=== PATIENT | female | born 1945 | race Caucasian/White ===

== ENCOUNTER 2022-05-16 09:36 | Day surgery (SDC) | payer MEDICARE ==
[2022-05-15 09:42] VITALS: BMI 28.4
[~2022-05-16 09:36] MED LIST: LACTATED RINGERS 1,000 ML IV SCH; SODIUM CHLORIDE 0.9% 1,000 ML IV SCH
[2022-05-16] MEDS ORDERED: SODIUM CHLORIDE 0.9% 500 ML 500 ML IV ONE (09:54)
[2022-05-16 10:04] VITALS: RESP 16; TEMP 97.1
[2022-05-16 10:18] LABS: Basophils # (A) 0.1 k/uL (0-0.2); Basophils % (A) 1 %; Eosinophils # (A) 0.3 k/uL (0-0.7); Eosinophils % (A) 4 %; HCT 42.6 % (34.0-46.0); HGB 13.7 gm/dL (11.4-16.0); Lymphocytes # (A) 2.1 k/uL (1.0-4.8); Lymphocytes % (A) 22 %; MCH 31.6 pg (25.0-35.0); MCHC 32.2 g/dL (31.0-37.0); MCV 98.2 fL (80.0-100.0); Mean Platelet Volume 8.1; Monocytes # (A) 0.5 k/uL (0-1.0); Monocytes % (A) 6 %; Neutrophils # (A) 6.1 k/uL (1.3-7.7); Neutrophils % (A) 66 %; Platelet Count 297 k/uL (150-450); RBC 4.34 m/uL (3.80-5.40); RDW 12.5 % (11.5-15.5); WBC 9.3 k/uL (3.8-10.6)
[2022-05-16 11:00] LABS: African American GFR (CKD) 37 (>60 ml/min/1.73 sqM); Anion Gap 14 mmol/L; Blood Urea Nitrogen 32 mg/dL (7-17); Calcium 9.6 mg/dL (8.4-10.2); Carbon Dioxide 24 mmol/L (22-30); Chloride 100 mmol/L (98-107); Glucose 103 mg/dL (74-99); Magnesium 1.6 mg/dL (1.6-2.3); Non-African American GFR(CKD) 32 (>60 ml/min/1.73 sqM); Sodium 138 mmol/L (137-145)
[2022-05-16] MEDS ORDERED: PROPOFOL 10 MG/ML 20 ML VIAL IV ONE (11:35)
--- NOTE | 2022-05-16 12:11 | P.EPPROC ---
- EP Procedure Note Electrophysiology Procedure Note: Diagnosis Persistent symptomatic atrial fibrillation with shortness of breath Normal white count 9.3 thousand, hemoglobin normal 13.7 Sodium 138 potassium 4.0 BUN 32 and creatinine 1.56 Normal TSH of 4.2 Procedure Electrical cardioversion for atrial fibrillation Patient on metoprolol ELIQUIS and flecainide Details Successful electrical cardioversion with a 200 J biphasic shock in the AP configuration to sinus rhythm Postconversion pause with some secondary pauses and then resumption of sinus rhythm Postprocedure 12-lead EKG shows sinus mechanism with a mildly prolonged DC interval heart rate 56 beats a minute with nonspecific ST-T abnormality Plan Reduce Lasix to 20 mg by mouth daily Reduce oral potassium 20 mEq once daily Continue flecainide 100 mg twice daily Reduce metoprolol dose to 25 mg twice daily
[2022-05-16 12:42] VITALS: BP 121/74; PULSE 53
== END 2022-05-16 13:06 | disposition home or self-care (01) ==
LOC: CATHCVL 09:36
PROVIDERS: ATTEND Internal Medicine Clinical Cardiac Electrophysiology
DX: I48.19 Other persistent atrial fibrillation (principal); I11.0 Hypertensive heart disease with heart failure; I50.23 Acute on chronic systolic (congestive) heart failure; Z79.890 Hormone replacement therapy; Z79.899 Other long term (current) drug therapy; Z87.891 Personal history of nicotine dependence; Z20.822 Contact with and (suspected) exposure to COVID-19
CPT/HCPCS: 92960; 80048; 84443; 83735; 85025; 87635; J2704

== ENCOUNTER → 2022-07-25 | Outpatient (CLI) | payer MEDICARE ==
[2022-07-25 20:16] LABS: Magnesium 2.2 mg/dL (1.5-2.4)
[2022-07-25 20:18] LABS: African American GFR (CKD) 36.5 (60.0-200.0); Blood Urea Nitrogen 22.3 mg/dL (9.0-27.0); Calcium 10.3 mg/dL (8.7-10.3); Carbon Dioxide 26.6 mmol/L (20.0-27.5); Chloride 100 mmol/L (96-109); Glucose 90 mg/dL (70-110); Non-African American GFR(CKD) 31.5 (60.0-200.0); Potassium 4.1 mmol/L (3.5-5.5); Sodium 140 mmol/L (135-145)
== END | disposition home or self-care (01) ==
LOC: LABWHC1 12:07
PROVIDERS: ATTEND Internal Medicine Interventional Cardiology
DX: I48.0 Paroxysmal atrial fibrillation (principal)
CPT/HCPCS: 36415; 80048; 83735; 84443

== ENCOUNTER 2022-09-11 08:02 | Day surgery (SDC) | payer MEDICARE ==
[2022-09-06 15:47] VITALS: BMI 28.2
[~2022-09-11 08:02] MED LIST changes: +LIDOCAINE 1% (10MG/ML) FOR IV START INTRADERMA PRN
[2022-09-11 08:47] LABS: Basophils # (A) 0.1 k/uL (0-0.2); Basophils % (A) 1 %; Eosinophils # (A) 0.5 k/uL (0-0.7); Eosinophils % (A) 8 %; HCT 41.3 % (34.0-46.0); HGB 13.6 gm/dL (11.4-16.0); Lymphocytes # (A) 1.9 k/uL (1.0-4.8); Lymphocytes % (A) 30 %; MCH 31.8 pg (25.0-35.0); MCHC 32.9 g/dL (31.0-37.0); MCV 96.8 fL (80.0-100.0); Mean Platelet Volume 8.3; Monocytes # (A) 0.4 k/uL (0-1.0); Monocytes % (A) 6 %; Neutrophils # (A) 3.3 k/uL (1.3-7.7); Neutrophils % (A) 52 %; Platelet Count 307 k/uL (150-450); RBC 4.26 m/uL (3.80-5.40); RDW 13.3 % (11.5-15.5); WBC 6.4 k/uL (3.8-10.6)
[2022-09-11 09:03] LABS: ALT 23 U/L (4-34); AST 30 U/L (14-36); African American GFR (CKD) 42 (>60 ml/min/1.73 sqM); Albumin 4.2 g/dL (3.5-5.0); Alkaline Phosphatase 113 U/L (38-126); Anion Gap 7 mmol/L; Blood Urea Nitrogen 29 mg/dL (7-17); Calcium 9.3 mg/dL (8.4-10.2); Carbon Dioxide 28 mmol/L (22-30); Chloride 104 mmol/L (98-107); Glucose 94 mg/dL (74-99); Non-African American GFR(CKD) 36 (>60 ml/min/1.73 sqM); Potassium 4.1 mmol/L (3.5-5.1); Sodium 139 mmol/L (137-145); Total Bilirubin 0.5 mg/dL (0.2-1.3); Total Protein 7.3 g/dL (6.3-8.2)
[2022-09-11] MEDS ORDERED: ePHEDrine 50 MG/ML 1 ML VIAL ONE (10:20)
[2022-09-11] MEDS ORDERED: HEPARIN SODIUM,PORCINE 10,000 UNIT/ML 1 ML VIAL ONE (10:20)
[2022-09-11] MEDS ORDERED: fentaNYL (PF) 50 MCG/ML 2 ML AMP ONE (10:20)
[2022-09-11] MEDS ORDERED: PROTAMINE SULFATE 10 MG/ML 5 ML VIAL IV ONE (10:20)
[2022-09-11] MEDS ORDERED: HYDROmorphone (PF) 1 MG/ML ONE (10:20)
[2022-09-11] MEDS ORDERED: ISOPROTERENOL 250 MCG/1.25 ML SYR IV ONE (10:20)
[2022-09-11] MEDS ORDERED: MIDAZOLAM 2 MG/2 ML VIAL ONE (10:20)
[2022-09-11] MEDS ORDERED: PROPOFOL 10 MG/ML 20 ML VIAL IV ONE (10:20)
[2022-09-11] MEDS ORDERED: SUCCINYLCHOLINE CHLORIDE 200 MG/10 ML VIAL IV ONE (10:20)
[2022-09-11] MEDS ORDERED: HEPARIN SOD,PORK IN 0.45% NACL 25,000 UNIT in 0.45% NACL 1 250ML.BAG IV ONE (10:24)
[2022-09-11] MEDS ORDERED: LIDOCAINE 1% INJ 10MG/ML (30 ML VIAL-PF) SQ ONE (11:02)
--- NOTE | 2022-09-11 13:40 | P.HPCAR ---
History of Present Illness This is Dr. Tran dictating an H/P on this patient The patient was interviewed and examined IMPRESSION / ASSESSMENT: Persistent atrial fibrillation, symptomatic History of severe bradycardia during atrial fibrillation Breakthrough episodes on flecainide Normal TSH History of congestive heart failure during atrial fibrillation PLAN: Proceed with pulmonary vein isolation, continue anticoagulation Thereafter reduce the dose of flecainide in 6 weeks HPI Patient is doing a lot better while in sinus rhythm No fever chills cough expectoration No heart failure symptoms in sinus rhythm During atrial fibrillation she was in heart failure ROS: No fever chills or rigors, no cough, phlegm or expectoration, no nausea, vomiting or diarrhea, no hematuria, dysuria, no musculoskeletal complaints, no strokes or seizures, no skin lesions. EXAMINATION: Elevated blood pressure 167/74 mmHg, pulse rate in 60s and 70s afebrile Breath sounds are clear no rhonchi no crackles Normal heart sounds no murmurs or gallops no rub Extremities warm no edema No JVD REVIEW OF LABS, ECG & MEDICAL DATA normal white count normal hemoglobin Normal electrolytes BUN 29 and creatinine 1.4 Normal TSH at 2.9 Physical Exam Vitals: Vital Signs Temp Pulse Resp BP BP Pulse Ox 09/11/22 13:30 69 16 167/74 97 09/11/22 13:15 66 18 174/79 97 09/11/22 12:59 97.0 F L 74 20 166/80 92 L 09/11/22 08:26 97.9 F 67 16 180/90 210/92 97 Intake and Output 09/10/22 09/11/22 09/11/22 22:59 06:59 14:59 Intake Total 526 Balance 526 Intake: IV 526 Other: Weight 80 kg Past Medical History Past Medical History: Atrial Fibrillation, GERD/Reflux, Hypertension, Osteoarthritis (OA), Syncope Additional Past Medical History / Comment(s): see Dr Tran's H&P,GOUT. ULERATVIE COLITIS History of Any Multi-Drug Resistant Organisms: None Reported Additional Past Surgical History / Comment(s): Cardioversion, COLONOSCOPY Past Anesthesia/Blood Transfusion Reactions: No Reported Reaction Smoking Status: Former smoker - Past Family History Mother Family Medical History: Cancer Additional Family Medical History / Comment(s): colon Brother(s) Family Medical History: Cancer Additional Family Medical History / Comment(s): cancer connected to [place] Physical Examination Vital Signs Temp Pulse Resp BP BP Pulse Ox 09/11/22 13:30 69 16 167/74 97 09/11/22 13:15 66 18 174/79 97 09/11/22 12:59 97.0 F L 74 20 166/80 92 L 09/11/22 08:26 97.9 F 67 16 180/90 210/92 97 Intake and Output 09/10/22 09/11/22 09/11/22 22:59 06:59 14:59 Intake Total 526 Balance 526 Intake: IV 526 Other: Weight 80 kg Results 09/11/22 08:30 09/11/22 08:16 Cardiac Enzymes 09/11/22 Range/Units 08:16 AST 30 (14-36) U/L CBC 09/11/22 Range/Units 08:30 WBC 6.4 (3.8-10.6) k/uL RBC 4.26 (3.80-5.40) m/uL Hgb 13.6 (11.4-16.0) gm/dL Hct 41.3 (34.0-46.0) % Plt Count 307 (150-450) k/uL Comprehensive Metabolic Panel 09/11/22 Range/Units 08:16 Sodium 139 (137-145) mmol/L Potassium 4.1 (3.5-5.1) mmol/L Chloride 104 (98-107) mmol/L Carbon Dioxide 28 (22-30) mmol/L BUN 29 H (7-17) mg/dL Creatinine 1.41 H (0.52-1.04) mg/dL Glucose 94 (74-99) mg/dL Calcium 9.3 (8.4-10.2) mg/dL AST 30 (14-36) U/L ALT 23 (4-34) U/L Alkaline Phosphatase 113 (38-126) U/L Total Protein 7.3 (6.3-8.2) g/dL Albumin 4.2 (3.5-5.0) g/dL Current Medications Generic Name Dose Route Start Last Admin Trade Name Freq PRN Reason Stop Dose Admin Sodium Chloride 1,000 mls @ 20 mls/hr 09/11/22 06:04 09/11/22 08:30 Saline 0.9% IV 10/11/22 06:05 500 mls .Q24H HILDA Administration Lactated Ringer's 1,000 mls @ 20 mls/hr 09/11/22 06:04 Lactated Ringers IV 10/11/22 06:05 .Q24H HILDA Lidocaine HCl 0.1 ml 09/11/22 06:04 Lidocaine 1% (10mg/Ml) For Iv Start INTRADERMA 10/11/22 06:05 PER PROTOCOL PRN IV Start Intake and Output 09/10/22 09/11/22 09/11/22 22:59 06:59 14:59 Intake Total 526 Balance 526 Intake: IV 526 Other: Weight 80 kg Patient Weight 09/12/22 06:59 Weight 80 kg 09/11/22 08:30 09/11/22 08:16
--- NOTE | 2022-09-11 13:42 | P.PRLE ---
RE: [place] Dear Leo Iveth underwent successful pulmonary vein isolation for management of atrial fibrillation Following that on high-dose Isuprel we could not induce any atrial fibrillation She will continue ELIQUIS and after about 6 weeks I will reduce the dose of flecainide It is important to maintain sinus rhythm in Iv[place] since she has both bradycardia and heart failure during atrial fibrillation The TSH is normal Creatinine is mildly elevated at 1.4 She may discontinue Lasix completely as well as oral potassium Thank you for entrusting me with the care of the patient Warm regards Sincerely Bill Tran
[2022-09-11] MEDS ORDERED: ACETAMINOPHEN TAB 325 MG TAB PO PRN (13:43)
--- NOTE | 2022-09-11 13:47 | P.EPPROC ---
- EP Procedure Note Electrophysiology Procedure Note: PROCEDURE A. fib ablation, PVI DIAGNOSIS Persistent Atrial fibrillation, symptomatic, refractory to therapy Underlying sick sinus syndrome RESULT No left atrial appendage mass seen on intracardiac echo Normalization LV function in sinus rhythm Successful A. fib ablation/pulmonary vein isolation of all veins using cryo- ablation Complete entrance block in all 4 veins confirmed No evidence for phrenic nerve injury Esophageal deflection YES. left-sided esophagus PROCEDURE DETAILS Patient was brought to the EP lab in a fasting state after obtaining written informed consent. Procedure performed under general anesthesia Esophagus was intubated. Esophageal temperature monitoring with circa catheter. Esophageal deflection with an endoscope to avoid hypothermia of the esophagus. After initial muscle relaxant use, muscle relaxants were not given thereafter in order to assess phrenic nerve during procedure. Patient prepped and draped as per protocol Cryo ablation-set up with standard preparation of the cryoablation tools done. Femoral Venous access obtained on the right and left groins and sheaths placed Diagnostic catheters for the high right atrium, phrenic nerve stimulation and pacing, His bundle, coronary sinus placed Intracardiac echo catheter placed. Long sheath placed in the right atrium Left and right transseptal catheterization performed under intracardiac echo guidance. Intravenous heparin with aCT above 300 Later, catheter positioning and balloon positioning in the left atrium and pulmonary veins, under intracardiac echo guidance Diagnostic EP study with coronary sinus pacing and recording Baseline measurements: Sinus cycle length 950 ms, QRS 104 ms, TX interval 170 ms and QT 464 ms AH 76 and HV interval 33 ms Sinus recovery times at 605 100 ms were 1012 and 1366 ms No delta waves of atrial pacing AV node Wenckebach block 420 ms Trophic conduction VA Wenckebach block at the baseline state or the 600 ms High-dose Isuprel employed Straight pacing employed AV node Wenckebach block 340 ms Transseptal catheterization performed RA pressure 10/5/7 LA pressure 17/4/9 Transseptal catheterization performed with standard sheath. The cryoablation sheath was then placed with an over the wire exchange without any acute complications. The cryoablation balloon was placed in the office of each pulmonary vein and all 4 pulmonary veins were isolated. IV dye was injected to confirm occlusion. Goal: achieve complete occlusion of the pulmonary vein, achieve -30 degrees C at 30 seconds and achieve -40 degrees C at 60 seconds and a time to effect of less than 60 seconds. If not, the balloon was repositioned to obtain this result After completion of Cryoblation with durations from 180-240 seconds, entrance block was confirmed with the Attain circular catheter in a roving fashion around the antrum of the pulmonary veins Phrenic nerve pacing was performed from the SVC, right innominate vein area and diaphragm voltage was monitored. Diaphragmatic contractions were also monitored manually for strength of contraction. At the end of the procedure the Achieve catheter was once again used to check for entrance block Phrenic nerve stimulation was performed to confirm diaphragmatic stimulation the end of the procedure Cine fluoroscopy was performed at the very end of the procedure to confirm movement of both diaphragms with inspiration and expiration At the end of the procedure the patient was extubated Venous sheaths were removed and hemostasis assured with a closure device PROCEDURES PERFORMED Diagnostic EP study CS pacing and recording Left and right transseptal catheterization Catheter the mapping of the tachycardia Intracardiac echocardiography Pulmonary vein isolation with transseptal and comprehensive EPS, 29903 Drug infusion, +[id number]
[2022-09-11] MEDS ORDERED: ACETAMINOPHEN IV (For NPO) 1,000 MG in EMPTY BAG 1 BAG IVPB ONE (14:00)
[2022-09-11] MEDS: FLECAINIDE 50 MG TAB PO SCH (17:45)
[2022-09-11] MEDS: APIXABAN 5 MG TAB PO SCH (19:48)
[2022-09-11] MEDS ORDERED: LEVOTHYROXINE 25 MCG TAB PO SCH (21:00)
[2022-09-11] MEDS ORDERED: PANTOPRAZOLE 40 MG TABLET PO SCH (21:00)
[2022-09-12] MEDS: FLECAINIDE 50 MG TAB PO SCH (06:08)
[2022-09-12 06:48] VITALS: BP 128/68; PULSE 76; RESP 15; TEMP 98.3
[2022-09-12] MEDS ORDERED: FUROSEMIDE 40 MG TAB PO ONE (08:42)
[2022-09-12] MEDS: APIXABAN 5 MG TAB PO SCH (08:49)
[2022-09-12] MEDS ORDERED: FUROSEMIDE 40 MG TAB PO SCH ×2 (09:00)
[2022-09-12] MEDS ORDERED: COLCHICINE 0.6 MG EACH PO SCH (09:00)
== END 2022-09-12 11:15 | disposition home or self-care (01) ==
LOC: CATHEP 08:02 → 6NMEDSUR 12:38 → CATHEP 09-12 11:15
PROVIDERS: ATTEND Internal Medicine Clinical Cardiac Electrophysiology
DX: I48.19 Other persistent atrial fibrillation (principal); I11.0 Hypertensive heart disease with heart failure; I50.9 Heart failure, unspecified; M19.90 Unspecified osteoarthritis, unspecified site; Z87.891 Personal history of nicotine dependence; I49.5 Sick sinus syndrome; Z79.899 Other long term (current) drug therapy; Z79.890 Hormone replacement therapy
CPT/HCPCS: 80053; 84443; 85025; 93656; J2001; J0131; J1644; 93623

== ENCOUNTER 2023-01-16 08:42 | Day surgery (SDC) | payer MEDICARE ==
[2023-01-12 10:34] VITALS: BMI 28.2
[~2023-01-16 08:42] MED LIST changes: -SODIUM CHLORIDE 0.9% 1,000 ML IV SCH
[2023-01-16 09:05] VITALS: TEMP 97
[2023-01-16] MEDS ORDERED: PROPOFOL 10 MG/ML 20 ML VIAL IV ONE (09:38)
--- NOTE | 2023-01-16 09:58 | P.PCN ---
Date of Procedure: 01/16/23 Procedure(s) Performed: BRIEF HISTORY: Patient is a 77-year-old pleasant white female scheduled for an elective colonoscopy as a part of surveillance of long-standing history of ulcerative colitis diagnosed in 2002. She is been maintained on Inflectra infusions every 8 weeks for the last 5 years and remains in clinical remission. PROCEDURE PERFORMED: Colonoscopy with biopsy and snare polypectomy. PREOPERATIVE DIAGNOSIS: Long-standing history of ulcerative colitis. IV sedation per Anesthesia. PROCEDURE: After informed consent was obtained, the patient, was brought into the endoscopy unit. IV sedation was administered by Anesthesia under continuous monitoring. Digital rectal examination was normal. Initially the Olympus CF-160 flexible video colonoscope was then inserted in the rectum, gradually advanced into the cecum without any difficulty. Careful examination was performed as the scope was gradually being withdrawn. Ileocecal valve and the appendiceal orifice were visualized and appeared normal. Prep was excellent. Mucosa of the cecum, ascending colon appeared normal. The transverse colon there was a 6 mm sessile polyp removed by snare polypectomy. Rest of the, transverse colon, descending colon, sigmoid colon, and rectum appeared normal. Scattered sigmoid diverticula seen. Retroflexion was performed in the rectum and no lesions were seen. Random biopsies were done from the cecum to rectum at every 10 cm intervals to rule out dysplasia. The patient tolerated the procedure well. IMPRESSION: No evidence of active colitis 6 mm transverse colon polyp status post polypectomy Scattered sigmoid diverticulosis . RECOMMENDATIONS: Findings of this examination were discussed with the patient as well as a family. She was advised to follow with the biopsy results. If the biopsies do not show any evidence of dysplasia she can have a repeat colonoscopy in 32years..
[2023-01-16 10:17] VITALS: BP 178/82; PULSE 84; RESP 16
== END 2023-01-16 10:29 | disposition home or self-care (01) ==
LOC: ORWHC2ENDO 08:42
PROVIDERS: ATTEND Internal Medicine Gastroenterology
DX: D12.3 Benign neoplasm of transverse colon (principal); K57.30 Diverticulosis of large intestine without perforation or abscess without bleeding; K51.90 Ulcerative colitis, unspecified, without complications; I10 Essential (primary) hypertension; I48.91 Unspecified atrial fibrillation; E03.9 Hypothyroidism, unspecified; K21.9 Gastro-esophageal reflux disease without esophagitis; Z79.02 Long term (current) use of antithrombotics/antiplatelets; Z79.890 Hormone replacement therapy; Z79.899 Other long term (current) drug therapy
CPT/HCPCS: 88305; 45380; 45385; J2704